=== PATIENT | male | born 1945 | race Caucasian/White ===

== ENCOUNTER 2017-09-15 07:47 | Day surgery (SDC) | payer MEDICARE, BC ==
[~2017-09-15] VITALS: Ht 177.8 cm; Wt 61.4 kg
[2017-09-15] VITALS (8 sets, daily range): BP systolic 94–131; BP diastolic 59–82
[~2017-09-15 07:47] MED LIST: DORZ10DR10 RIGHTEYE; LOVA20TA2 PO
[2017-09-15] MEDS ORDERED: meperidine/PF 100mg/ml syringe ONE (08:30)
[2017-09-15] MEDS ORDERED: fentaNYL/PF 50MCG/1 ML 2ML syringe ONE (08:30)
[2017-09-15] MEDS ORDERED: diphenhydrAMINE 50 mg/ml inj ONE (08:31)
[2017-09-15] MEDS ORDERED: MIDAZolam 1mg/ml 10ml vial ONE (08:31)
[2017-09-15] MEDS ORDERED: levoFLOXACIN-Levaquin 500mg/D5 0 ML IV ONE (08:32)
[2017-09-15] MEDS ORDERED: LIDOcaine Viscous 15ml cup ONE (08:32)
[2017-09-15] MEDS ORDERED: glucagon, human recombinant 1mg kit ONE (08:32)
[2017-09-15] MEDS ORDERED: iohexol 300 MG/1 ML 50ml polymer ONE (08:32)
== END 2017-09-15 11:10 | disposition home or self-care (01) ==
LOC: GI LAB 07:47
PROVIDERS: ATTEND Internal Medicine Gastroenterology
DX: Z46.59 Encounter for fitting and adjustment of other gastrointestinal appliance and device (principal); Z79.899 Other long term (current) drug therapy
CPT/HCPCS: 43275; G0500; J1610; J2250; J3010; J7030; Q9967; J1200; J1956; J2175

== ENCOUNTER 2019-04-12 23:48 | Emergency (ER) | payer MEDICARE, BC ==
[~2019-04-12] VITALS: Ht 177.8 cm; Wt 70.5 kg
[2019-04-13] MEDS ORDERED: LIDOcaine 1% w/epiNEPHrine 1:200,000 30ml vial IM ONE
[2019-04-13] MEDS ORDERED: bacitracin 15gm ointment TP ONE
[2019-04-13] MEDS ORDERED: ALB0.5UD IH (00:10)
[2019-04-13] MEDS ORDERED: LOSA25TA96 PO (00:10)
[2019-04-13] MEDS ORDERED: ASPI-611 PO (00:10)
[2019-04-13] MEDS ORDERED: OMEP40CA13 PO (00:10)
[2019-04-13] MEDS ORDERED: TIOT4MIS5 (00:10)
[2019-04-13] MEDS ORDERED: LYR75C PO (00:10)
[2019-04-13] MEDS ORDERED: METO25TA6 PO (00:10)
[2019-04-13] MEDS ORDERED: FLUT1AER (00:10)
[2019-04-13 00:49] VITALS: BP 121/75
== END 2019-04-13 00:53 | disposition home or self-care (01) ==
LOC: ER 23:48
DX: S01.81XA Laceration without foreign body of other part of head, initial encounter (principal); Z79.82 Long term (current) use of aspirin; Z79.899 Other long term (current) drug therapy; W22.03XA Walked into furniture, initial encounter; Y93.89 Activity, other specified; Y92.009 Unspecified place in unspecified non-institutional (private) residence as the place of occurrence of the external cause; Y99.8 Other external cause status
CPT/HCPCS: 12011; 99284

== ENCOUNTER 2019-04-17 17:22 | Emergency (ER) | payer MEDICARE, BC ==
[~2019-04-17] VITALS: Ht 177.8 cm; Wt 69.5 kg
[~2019-04-17 17:22] MED LIST changes: +ALB0.5UD IH; +ASPI-611 PO; -DORZ10DR10 RIGHTEYE; +FLUT1AER; +LOSA25TA96 PO; -LOVA20TA2 PO; +LYR75C PO; +METO25TA6 PO; +OMEP40CA13 PO; +TIOT4MIS5
--- NOTE | 2019-04-17 17:44 | NUR ---
PATIENT HERE FOR SUTURE REMOVAL FROM LEFT SUPERIOR ANTERIOR FOREHEAD. PA AT BEDSIDE. FOUR SUTURES REMOVED. INCISION CDI AND WELL APPROXIMATED. PATIENT TOLERATED WELL
[2019-04-17 17:49] VITALS: BP 102/59
== END 2019-04-17 17:52 | disposition home or self-care (01) ==
LOC: ER 17:23
DX: S01.81XD Laceration without foreign body of other part of head, subsequent encounter (principal); Z79.82 Long term (current) use of aspirin; Z79.899 Other long term (current) drug therapy; X58.XXXD Exposure to other specified factors, subsequent encounter
CPT/HCPCS: 99281